=== PATIENT | female | born 1965 | race Two or more races ===

== ENCOUNTER 2018-10-02 13:06 | Emergency (ER) | payer MEDICAID ==
[~2018-10-02] VITALS: Ht 157.5 cm; Wt 66.2 kg
[2018-10-02 16:29] VITALS: BP 134/79
[2018-10-02] MEDS ORDERED: BACITRACIN TOP OINT 1 UD PKG TOP ONE (16:45)
[2018-10-02] MEDS ORDERED: LIDOCAINE 1% (LOCAL ANESTH.) PF 5ml SDV ID ONE (16:45)
== END 2018-10-02 17:44 | disposition home or self-care (01) ==
LOC: ER 13:15
DX: S61.216A Laceration without foreign body of right little finger without damage to nail, initial encounter (principal); I10 Essential (primary) hypertension; W26.0XXA Contact with knife, initial encounter; Y93.89 Activity, other specified; Y92.098 Other place in other non-institutional residence as the place of occurrence of the external cause; Y99.8 Other external cause status
CPT/HCPCS: 12001; 73130

== ENCOUNTER 2018-10-05 15:38 | Inpatient (IN) | payer MEDICAID ==
[~2018-10-05] VITALS: Ht 157.5 cm; Wt 75.8 kg
[2018-10-05] MEDS ORDERED: IBUPROFEN 800 MG TAB PO ONE (16:00)
[2018-10-05 17:01] LABS: Alanine Aminotransferase 23 U/L (13-56); Albumin 3.3 g/dL (3.4-5.0); Anion Gap 10 (5-15); Aspartate Aminotransferase 20 U/L (15-37); BUN/Creatinine Ratio 7.7; Blood Urea Nitrogen 13 mg/dL (7-18); Calcium 7.5 mg/dL (8.5-10.1); Carbon Dioxide 20 mmol/L (21-32); Chloride 109 mmol/L (98-107); GFR African American 41 mL/min; GFR Non-African American 34 mL/min; Glucose 157 mg/dL (74-106); Potassium 3.4 mmol/L (3.5-5.1); Sodium 139 mmol/L (136-145)
[2018-10-05 17:02] LABS: Basophils # (auto) 0 uL; Eosinophils # (auto) 0 uL; Lymphocytes # (auto) 0.5 uL; Mean Corpuscular Hgb Conc. 30.5 g/dL (32.0-36.0); Monocytes # (auto) 0.4 uL; Neutrophils # (auto) 4.5 uL; Nucleated Red Blood Cells % 0.1 %; Red Cell Distribution Width 16.1 % (11.8-14.3); White Blood Cell 5.4 10^3/uL (4.4-10.8)
[2018-10-05 17:05] LABS: Basophils % (auto) 0.3 % (0.0-2.0); Hematocrit 36.9 % (36.0-46.0); Hemoglobin 11.2 g/dL (12.2-16.2); Lymphocytes % (auto) 10.1 % (10.0-50.0); Mean Corpuscular Hemoglobin 19.3 pg (28.0-32.0); Mean Corpuscular Volume 63.4 fL (80.0-100.0); Monocytes % (auto) 7.2 % (0.0-12.0); Neutrophils % (auto) 82.4 % (37.0-80.0); Platelet Count (auto) 161 10^3/uL (140-450); Red Blood Cells 5.82 10^6/uL (4.0-5.20)
[2018-10-05 17:06] LABS: Alkaline Phosphatase 63 U/L (45-117); Bilirubin, Total 0.2 mg/dL (0.2-1.0); Total Protein 7.6 g/dL (6.4-8.2)
[2018-10-05] MEDS ORDERED: AZITHROMYCIN 500MG/ 250ML 250 ML IV ONE (17:30)
[2018-10-05] MEDS ORDERED: PIPERACILLIN-TAZOB 3.375GM 100 ML IV ONE (17:30)
[2018-10-05] MEDS ORDERED: ONDANSETRON HCL 4 MG/2 ML VIAL IV PRN (21:30)
[2018-10-05] MEDS ORDERED: POTASSIUM CHL 20 Meq TABLET PO ONE (21:45)
[2018-10-05] MEDS: ATORVASTATIN 20 MG TAB PO SCH (21:54)
[2018-10-06] VITALS (7 sets, daily range): BP systolic 88–115; BP diastolic 49–74
[2018-10-06 00:01] LABS: Urine WBC None Seen /hpf (0 - 5)
--- NOTE | 2018-10-06 00:05 | NUR ---
Telemetry admit from ER Patient admitted to Telemetry unit after SBAR received from Sary. Patient oriented to primary RN, unit, room, bed, and unit policies regarding patient care and visiting hours. Patient now on continuous telemetry monitoring, tele box # 12 and telemetry reading on arrival to unit is sinus rhythm. Bed is in lowest position and locked. Call light within reach. Board updated. Patient placed on bedside oxygen at 2 l/min NC, weighed by bedscale and encouraged to call if they need something. All questions and concerns addressed, patient verbalized understanding.
[2018-10-06 00:22] LABS: Urine Bacteria NONE SEEN /hpf (None Seen); Urine Blood Negative /uL (Negative); Urine Specific Gravity 1.012 (1.001-1.035)
[2018-10-06] MEDS ORDERED: AMLO5TAB13 PO (01:12)
--- NOTE | 2018-10-06 02:03 | NUR ---
Paging hospitalist because patient has a painful cough and her sputum has flecks of blood in her sputum. Patient rates pain 7 out of 10 in her chest while coughing.
[2018-10-06] MEDS ORDERED: PROMETHAZINE W/CODEINE 5 ML ORAL SYRUP PO PRN (05:15)
--- NOTE | 2018-10-06 05:23 | NUR ---
Spoke to BHAVIN Moody who ordered Promethazine with Codeine 5 mg PO q 4 hrs PRN cough and Tamiflu 30 mg PO BID for 5 days starting now. Addendum: 10/06/18 at 0525 by DIGNA MERCEDES RN Correction: 5 ml not 5 mg for promethazine with codeine
--- NOTE | 2018-10-06 05:24 | NUR ---
BHAVIN Moody ordered Tylenol 650 mg PO q 6hrs PRN for elevated temperature greater than 100.4
[2018-10-06] MEDS ORDERED: OSELTAMIVIR 30 MG CAP PO SCH (06:00)
[2018-10-06] MEDS ORDERED: ACETAMINOPHEN 325 MG TAB PO PRN (06:00)
[2018-10-06 06:11] LABS: Basophils # (auto) 0 uL; Eosinophils # (auto) 0 uL; Lymphocytes # (auto) 0.9 uL; Mean Corpuscular Volume 62.6 fL (80.0-100.0); Monocytes # (auto) 0.4 uL; Neutrophils # (auto) 2.3 uL; White Blood Cell 3.6 10^3/uL (4.4-10.8)
[2018-10-06 06:15] LABS: Basophils % (auto) 0.5 % (0.0-2.0); Eosinophils % (auto) 0.1 % (0.0-7.0); Hematocrit 34.8 % (36.0-46.0); Hemoglobin 10.8 g/dL (12.2-16.2); Mean Corpuscular Hemoglobin 19.5 pg (28.0-32.0); Mean Corpuscular Hgb Conc. 31.1 g/dL (32.0-36.0); Monocytes % (auto) 10.4 % (0.0-12.0); Platelet Count (auto) 114 10^3/uL (140-450); Red Blood Cells 5.56 10^6/uL (4.0-5.20); Red Cell Distribution Width 15.9 % (11.8-14.3)
[2018-10-06 06:26] LABS: Calcium 7.7 mg/dL (8.5-10.1); Potassium 3.7 mmol/L (3.5-5.1)
[2018-10-06 06:28] LABS: BUN/Creatinine Ratio 8.7
--- NOTE | 2018-10-06 08:00 | NUR ---
ASSESSMENT NOTE PT IS ALERT ORIENTED X4, RESTING IN BED COMFORTABLY, NO DISTRESS NOTED, STATED < I STILL FEELING WEAK>, PAIN 0/10, AMBULATE NEEDED, CALL LIGHT WITHIN REACH. PT CONTINUE ON CONTACT ISOLATION, MONITOR EVERY SHIFT.
[2018-10-06] MEDS: cefTRIAXone 1GM/50ML D5W 50 ML IV SCH (08:19)
[2018-10-06] MEDS: risperiDONE 1 MG TAB PO SCH (08:48)
[2018-10-06] MEDS: SERTRALINE HCL 50 MG TAB PO SCH (08:48)
[2018-10-06] MEDS: FAMOTIDINE 20 MG TAB PO SCH (08:48)
[2018-10-06] MEDS: AZITHROMYCIN 500MG/ 250ML 250 ML IV SCH (08:53)
--- NOTE | 2018-10-06 10:00 | NUR ---
PT IS ABLE TO AMBULATE TO BATHROOM AND BACK TO BED NEEDED.
[2018-10-06] MEDS ORDERED: SODIUM CHLORIDE 0.9% 1,000 ML IV SCH (15:45)
--- NOTE | 2018-10-06 15:50 | NUR ---
DR SHIN AT BED SIDE, PT IS SLEEPING
--- NOTE | 2018-10-06 17:00 | NUR ---
PT SLEP MOST OF THE DAY, NO DISTRESS NOTED.
[2018-10-06] MEDS: SODIUM CHLORIDE 0.9% 1,000 ML IV SCH (18:38)
--- NOTE | 2018-10-06 19:00 | NUR ---
Opening Shift Note Assumed care of patient, awake and alert. No S/S of distress/SOB or pain. Instructed on POC and to call for assist PRN, will continue to monitor for changes Q1hr and PRN.
[2018-10-06] MEDS: OSELTAMIVIR 75 MG CAP PO SCH (22:17)
[2018-10-06] MEDS: ATORVASTATIN 20 MG TAB PO SCH (22:17)
--- NOTE | 2018-10-06 23:40 | NUR ---
Call from lab: Positve blood culture with Gram + cocci in clusters and anaerobe bottle Paged hospitalist
--- NOTE | 2018-10-07 01:20 | NUR ---
Spoke with Fatoumata the [facility] She stated we should wait for the respiratory culture. No new antibiotic orders.
[2018-10-07 05:00] VITALS: BP 103/62
[2018-10-07 06:32] LABS: BUN/Creatinine Ratio 10.4; Calcium 8.2 mg/dL (8.5-10.1); Magnesium 2.2 mg/dL (1.6-2.6); Potassium 3.7 mmol/L (3.5-5.1)
[2018-10-07] MEDS: SODIUM CHLORIDE 0.9% 1,000 ML IV SCH ×2 (06:52→18:40)
[2018-10-07 07:06] LABS: Mean Corpuscular Hemoglobin 19.4 pg (28.0-32.0); White Blood Cell 2.3 10^3/uL (4.4-10.8)
[2018-10-07 07:08] LABS: Hematocrit 36.1 % (36.0-46.0); Mean Corpuscular Hgb Conc. 30.6 g/dL (32.0-36.0); Mean Corpuscular Volume 63.2 fL (80.0-100.0); Platelet Count (auto) 165 10^3/uL (140-450); Red Cell Distribution Width 15.8 % (11.8-14.3)
[2018-10-07 07:23] LABS: Band Neutrophils % (manual) 0; Basophils % (manual) 0 (0.0-2.0); Blast Cells 0; Metamyelocytes % 0; Myelocytes % 0; Promyelocytes % 0; Reactive Lymphocytes 0
--- NOTE | 2018-10-07 08:00 | NUR ---
ASSESSMENT NOTE PT IS ALERT ORIENTED X4, RESTING IN BED COMFORTABLY, GENERALIS WEAKNESS NOTED, DENIES PAIN OR SHORTNESS, SELF REPOSITION AND AMBULATE NEEDED, CALL LIGHT WITHIN REACH.
[2018-10-07 08:09] VITALS: BP 109/63
[2018-10-07] MEDS: cefTRIAXone 1GM/50ML D5W 50 ML IV SCH (08:50)
[2018-10-07] MEDS: SERTRALINE HCL 50 MG TAB PO SCH (08:52)
[2018-10-07] MEDS: FAMOTIDINE 20 MG TAB PO SCH (08:53)
[2018-10-07] MEDS: risperiDONE 1 MG TAB PO SCH (08:53)
[2018-10-07] MEDS: OSELTAMIVIR 75 MG CAP PO SCH ×2 (08:53→21:37)
--- NOTE | 2018-10-07 10:00 | NUR ---
PT CONTINUE ON BED REST, AMBULATE TO BATHROOM NEEDED, TOLERATED BREAKFAST WELL.
[2018-10-07] MEDS: AZITHROMYCIN 500MG/ 250ML 250 ML IV SCH (10:03)
[2018-10-07 12:26] VITALS: BP 93/53
--- NOTE | 2018-10-07 13:00 | NUR ---
DR SHIN IS HERE FOLLOWING UP ON PT.
[2018-10-07 14:36] LABS: Eosinophils % (manual) 1 (0-7); Lymphocytes % (manual) 60 (10.0-50.0); Monocytes % (manual) 8 (0-12)
[2018-10-07 16:52] VITALS: BP 97/56
--- NOTE | 2018-10-07 17:12 | NUR ---
PT IS OVER THE PHONE WITH HER FAMILY.
[2018-10-07] MEDS: ATORVASTATIN 20 MG TAB PO SCH (21:37)
[2018-10-07 22:00] VITALS: BP 93/58
[2018-10-08] VITALS (7 sets, daily range): BP systolic 101–118; BP diastolic 66–82
[2018-10-08 06:07] LABS: Basophils # (auto) 0 uL; Eosinophils # (auto) 0.1 uL; Hemoglobin 10.8 g/dL (12.2-16.2); Lymphocytes # (auto) 1.4 uL; Mean Corpuscular Hemoglobin 19.3 pg (28.0-32.0); Monocytes # (auto) 0.3 uL; Neutrophils # (auto) 0.9 uL; Neutrophils % (auto) 33.3 % (37.0-80.0); Red Blood Cells 5.57 10^6/uL (4.0-5.20); White Blood Cell 2.7 10^3/uL (4.4-10.8)
[2018-10-08 06:09] LABS: Hematocrit 34.8 % (36.0-46.0); Lymphocytes % (auto) 50.9 % (10.0-50.0); Mean Corpuscular Volume 62.4 fL (80.0-100.0); Monocytes % (auto) 9.8 % (0.0-12.0); Nucleated Red Blood Cells % 0.2 %; Platelet Count (auto) 141 10^3/uL (140-450); Red Cell Distribution Width 15.7 % (11.8-14.3)
[2018-10-08 06:19] LABS: Potassium 4.1 mmol/L (3.5-5.1)
[2018-10-08 06:31] LABS: BUN/Creatinine Ratio 10.9; Calcium 8.3 mg/dL (8.5-10.1)
[2018-10-08] MEDS: SODIUM CHLORIDE 0.9% 1,000 ML IV SCH ×2 (08:00→22:22)
[2018-10-08] MEDS: cefTRIAXone 1GM/50ML D5W 50 ML IV SCH (09:33)
[2018-10-08] MEDS: AZITHROMYCIN 500MG/ 250ML 250 ML IV SCH (10:18)
[2018-10-08] MEDS: risperiDONE 1 MG TAB PO SCH (10:19)
[2018-10-08] MEDS: SERTRALINE HCL 50 MG TAB PO SCH (10:19)
[2018-10-08] MEDS: FAMOTIDINE 20 MG TAB PO SCH (10:19)
[2018-10-08] MEDS: OSELTAMIVIR 75 MG CAP PO SCH ×2 (10:20→22:22)
--- NOTE | 2018-10-08 14:17 | NUR ---
PAGED DR SHIN AND LET HER KNOW PATIENT IS REQUESTING TO HAVE TELE REMOVED. PER DR SHIN PATIENT MAY HAVE TELE REMOVED.
--- NOTE | 2018-10-08 15:15 | NUR ---
Received report from JONI Payan and assumed care of patient.
[2018-10-08] MEDS: ATORVASTATIN 20 MG TAB PO SCH (22:22)
[2018-10-09 05:00] VITALS: BP 119/76
[2018-10-09 07:10] LABS: Basophils # (auto) 0 uL; Eosinophils # (auto) 0.1 uL; Hemoglobin 11.3 g/dL (12.2-16.2); Lymphocytes # (auto) 1.2 uL; Nucleated Red Blood Cells % 0.2 %; White Blood Cell 3.3 10^3/uL (4.4-10.8)
[2018-10-09 07:17] LABS: Basophils % (auto) 0.6 % (0.0-2.0); Eosinophils % (auto) 4.1 % (0.0-7.0); Hematocrit 35.5 % (36.0-46.0); Lymphocytes % (auto) 35.6 % (10.0-50.0); Mean Corpuscular Hemoglobin 19.8 pg (28.0-32.0); Mean Corpuscular Hgb Conc. 31.9 g/dL (32.0-36.0); Mean Corpuscular Volume 62.1 fL (80.0-100.0); Monocytes # (auto) 0.4 uL; Neutrophils # (auto) 1.6 uL; Neutrophils % (auto) 48.7 % (37.0-80.0); Platelet Count (auto) 163 10^3/uL (140-450); Red Blood Cells 5.72 10^6/uL (4.0-5.20); Red Cell Distribution Width 15.6 % (11.8-14.3)
[2018-10-09 07:24] LABS: Potassium 3.8 mmol/L (3.5-5.1)
[2018-10-09 07:29] LABS: BUN/Creatinine Ratio 12.4; Calcium 8.4 mg/dL (8.5-10.1)
--- NOTE | 2018-10-09 07:41 | NUR ---
RECEIVED REPORT AND ASSUMED CARE FROM [facility] NURSE GILMAN ...
[2018-10-09 08:00] VITALS: BP 117/74
[2018-10-09] MEDS: cefTRIAXone 1GM/50ML D5W 50 ML IV SCH (08:31)
[2018-10-09 09:00] VITALS: BP 117/74
[2018-10-09] MEDS ORDERED: PNEUMOCOCCAL VACC POLYS 25 MCG/0.5 ML VIAL IM ONE (09:00)
[2018-10-09] MEDS: AZITHROMYCIN 500MG/ 250ML 250 ML IV SCH (09:15)
[2018-10-09] MEDS: SERTRALINE HCL 50 MG TAB PO SCH (09:16)
[2018-10-09] MEDS: FAMOTIDINE 20 MG TAB PO SCH (09:16)
[2018-10-09] MEDS: OSELTAMIVIR 75 MG CAP PO SCH (09:16)
[2018-10-09] MEDS: risperiDONE 1 MG TAB PO SCH (09:16)
[2018-10-09] MEDS: SODIUM CHLORIDE 0.9% 1,000 ML IV SCH (09:48)
--- NOTE | 2018-10-09 10:08 | NUR ---
ADMINISTERED PNEUMOCOCCAL VACCINE ON RIGHT DELTOID, PATIENT TOLERATED WELL. STATES SHE HAS HAD IT BEFORE 10+ YEARS AGO.
[2018-10-09 11:53] VITALS: BP 117/74
[2018-10-09] MEDS ORDERED: TAMIFLU PO (12:24)
[2018-10-09] MEDS ORDERED: LEVO750T2 PO (12:24)
[2018-10-09 13:00] VITALS: BP 105/71
--- NOTE | 2018-10-09 13:06 | NUR ---
PER DR SHIN IT IS OK TO REMOVE THE TWO STITCHES IN PATIENTS RIGHT PINKY FINGER. PATIENT TOLERATED WELL, PREVIOUS LACERATION HEALED.
--- NOTE | 2018-10-09 13:07 | NUR ---
PATIENT INSTRUCTED TO FOLLOW UP WITH PRIMARY CARE PROVIDER IN [place] WHERE SHE IS FROM, THE DOCTOR NAME IS DR MCGRATH. PATIENT VERBALIZED UNDERSTANDING AND HAS PRESCRIPTIONS IN HAND FOR FILLING OUTSIDE THE HOSPITAL.
--- NOTE | 2018-10-09 14:04 | NUR ---
Discharge instructions given as ordered. Encourage to follow up with PMD as instructed. All questions and concerns addressed. Patient verbalized understanding. Medication reconciliation form completed and copy given to patient. Home medications held in Pharmacy returned to patient, and PNEUMONIA. IV removed with catheter intact, pressure dressing applied. Telemetry unit returned to ICU. Patient taken to vehicle via wheelchair with all personal belongings, accompanied by staff and family member. No distress noted at time of departure. PATIENT WITH ALL HOME MEDICATIONS AND PRESCRIPTIONS.
== END 2018-10-09 14:06 | disposition home or self-care (01) | DRG 720 ==
LOC: ER 15:40 → TELE 22:08 → TELE-EAST 23:52 → EAST 10-08 14:39
PROVIDERS: ADMIT Nurse Practitioner Family; ATTEND Internal Medicine
DX: A41.9 Sepsis, unspecified organism (principal); N17.0 Acute kidney failure with tubular necrosis; J18.1 Lobar pneumonia, unspecified organism; E87.6 Hypokalemia; Z90.5 Acquired absence of kidney; I10 Essential (primary) hypertension; E78.5 Hyperlipidemia, unspecified; Z23 Encounter for immunization; J09.X1 Influenza due to identified novel influenza A virus with pneumonia
CPT/HCPCS: 36415; 71046; 74176; 80048; 80053; 81001; 83735; 84484; 85007; 85025; 85027; 85379; 87040; 87070; 87077; 87086; 87186; 87205; 87804; 93005; 96365; 96367; G0378; G9035; J0696; J2543